=== PATIENT | male | born 1990 | race Caucasian/White ===

== ENCOUNTER 2023-12-25 07:06 | Emergency (ER) | payer BC, OTHER ==
[~2023-12-25] VITALS: Ht 182.9 cm; Wt 91.0 kg
[2023-12-25 07:37] VITALS: BP 118/75; RESP 16; TEMP 98; O2SAT 99
[2023-12-25 08:04] VITALS: PULSE 76
[2023-12-25 08:27] LABS: Basophils # (auto) 0 10 ^3/uL (0-0.2); Basophils % (auto) 0.4 % (0.0-2.0); Eosinophils # (auto) 0.1 10 ^3/uL (0-0.8); Eosinophils % (auto) 0.5 % (0.0-7.0); Hematocrit 39.1 % (41.0-53.0); Lymphocytes # (auto) 1.3 10 ^3/uL (0.4-5.4); Lymphocytes % (auto) 13.7 % (10.0-50.0); Mean Corpuscular Hemoglobin 33.4 pg (28.0-32.0); Mean Corpuscular Hgb Conc. 35.8 g/dL (32.0-36.0); Mean Corpuscular Volume 93.3 fL (80.0-100.0); Monocytes # (auto) 0.8 10 ^3/uL (0-1.3); Neutrophils # (auto) 7.5 10 ^3/uL (1.6-8.6); Neutrophils % (auto) 77.4 % (37.0-80.0); Platelet Count (auto) 263 10^3/uL (140-450); Red Cell Distribution Width 12.5 % (11.8-14.3); White Blood Cell 9.6 10^3/uL (4.4-10.8)
[2023-12-25 08:31] LABS: Chloride 104 mmol/L (98-107); Potassium 4.1 mmol/L (3.5-5.1); Sodium 140 mmol/L (136-145)
[2023-12-25 08:32] LABS: Anion Gap 6 (5-15); Carbon Dioxide 30 mmol/L (20-30)
[2023-12-25 08:33] LABS: Calcium 9.8 mg/dL (8.7-10.4)
[2023-12-25 08:38] LABS: BUN/Creatinine Ratio 15.2 (10.0-20.0); Blood Urea Nitrogen 17 mg/dL (9-23); Glucose 128 mg/dL (74-106)
== END 2023-12-25 08:49 | disposition home or self-care (01) ==
LOC: EDBD 07:06 → ER 07:06
DX: F41.8 Other specified anxiety disorders (principal)
CPT/HCPCS: 36415; 80048; 84484; 85025; 93005